=== PATIENT | female | born 1980 | race Caucasian/White ===

== ENCOUNTER → 2022-05-01 | Outpatient (CLI) | payer OTHER, SELFPAY ==
[2022-05-01 11:06] LABS: Anion Gap 8 (5-15); BUN 14 mg/dL (7-18); BUN/Creat Ratio 18.1 RATIO (10-20); Calcium,Total 9.3 mg/dL (8.5-10.1); Chloride 107 mmol/L (98-107); Cholesterol 169 mg/dL (200); Creatinine, Serum 0.77 mg/dL (0.55-1.02); EST Glomerular Filtration Rate 87 mL/min (>60); Est Glom Filt Rate - Afr Amer 106 mL/min (>60); Glucose 91 mg/dL (74-106); High Density Lipoprotein 62 mg/dL; Potassium 3.8 mmol/L (3.5-5.1); Sodium Level 138 mmol/L (136-145); Triglycerides 100 mg/dL; Very Low Density Lipoprotein 20 mg/dL (5-40)
[2022-05-01 11:29] LABS: Vitamin D,25 Hydroxy 35.2 ng/mL
== END | disposition home or self-care (01) ==
LOC: MFPLAB 09:33
PROVIDERS: PCP Family Medicine; Referring Provider Family Medicine; Visit Provider Family Medicine
DX: Z00.00 Encounter for general adult medical examination without abnormal findings (principal)
CPT/HCPCS: 36415; 80048; 80061; 82306

== ENCOUNTER → 2022-10-24 | Outpatient (CLI) | payer OTHER, SELFPAY ==
[2022-10-24 17:58] LABS: Absolute Lymphocyte Count 1.83 X10^3/uL (0.83-4.51); Absolute Neutrophil Count 4.3 X10^3/uL (2.0-7.7); Basophil# 0.03 X10^3/uL; Basophil% 0.5 % (0-1); Eosinophil# 0.07 X10^3/uL; Eosinophils% 1.1 % (0-5); Hematocrit 32.3 % (37-47); Hemoglobin 8.9 g/dL (12.0-15.0); Lymphocyte # 1.83 X10^3/ul (0.83-4.51); Lymphocyte % 27.5 % (19-41); Mean Corp Hgb Conc 27.6 g/dL (32-36); Mean Corpuscular Hgb 19.5 pg (27.0-32.0); Mean Corpuscular Volume 70.7 fL (81-99); Mean Platelet Vol. 9.7 fl (6.2-12.0); Monocyte# 0.43 X10^3/uL; Monocyte% 6.5 % (0-10); NRBC Flagged by Analyzer 0.3 % (0-5); Neutrophil # 4.27 X10^3/uL (2.7-7.7); Neutrophil % 64.1 % (47-70); Platelet Count 459 K/mm3 (150-450); RBC Distribution Width CV 17.6 % (11.6-14.6); RBC Distribution Width SD 44.4 fl (35.1-43.9); Red Blood Count 4.57 M/mm3 (4.2-5.4); White Blood Count 6.7 K/mm3 (4.4-11.0)
[2022-10-24 18:39] LABS: Anion Gap 7 (5-15); BUN 13 mg/dL (7-18); Calcium,Total 8.7 mg/dL (8.5-10.1); Chloride 105 mmol/L (98-107); Creatinine, Serum 0.72 mg/dL (0.55-1.02); EST Glomerular Filtration Rate 95 mL/min (>60); Est Glom Filt Rate - Afr Amer 115 mL/min (>60); Glucose 94 mg/dL (74-106); Potassium 4.2 mmol/L (3.5-5.1); Sodium Level 140 mmol/L (136-145); Thyroid Stim Hormone (TSH) 1.95 uIU/mL (0.358-3.74)
== END | disposition home or self-care (01) ==
LOC: MFPLAB 16:02
PROVIDERS: PCP Family Medicine; Visit Provider Family Medicine
DX: R00.2 Palpitations (principal)
CPT/HCPCS: 36415; 80048; 84443; 85025

== ENCOUNTER 2022-12-07 08:35 | Day surgery (SDC) | payer OTHER, SELFPAY ==
--- NOTE | 2022-11-13 16:25 | PCM.HP.BLA ---
History and Physical Date of Admission: 12/07/22 HPI: The patient is a 42 year old female presenting for pre-operative visit. She is scheduled for laparoscopic bilateral salpingectomy and hysteroscopy with endometrial ablation, for sterilization and menorrhagia with iron deficiency anemia on 12/07/2022. Procedure discussed along with risks, benefits and complications. Other alternatives discussed for management. Consent form signed? Yes. ? ? PAST MEDICAL HISTORY PAST MEDICAL HISTORY Diagnosis Date ? Abnormal glandular Papanicolaou smear of cervix 2002 ? Abn. Pap smear (cervix) ? ? PAST SURGICAL HISTORY PAST SURGICAL HISTORY Procedure Laterality Date ? COLPOSCOPY CERVIX UPPER/ADJACENT VAGINA ? ? ? Colposcopy ? EXTRACTION, ERUPTED TOOTH OR EXPOSED ROOT (ELEVATION AND/OR FORCEPS REMOVAL) ? ? ? wisdom teeth ? ? ? CURRENT MEDICATIONS Current Outpatient Medications Medication Sig Dispense Refill ? Multivitamins-Iron tab Take by mouth. ? ? ? ferrous sulfate (IRON ORAL) Take by mouth. ? ? ? tranexamic acid (LYSTEDA) 650 mg tablet Take 2 tablets by mouth three times daily as needed (heavy menstrual bleeding) for up to 5 days. 30 tablet 2 ? No current facility-administered medications for this visit. ? ? ALLERGIES: Patient has no known allergies. ? PERSONAL HISTORY: SOCIAL HISTORY Social History ? Tobacco Use ? Smoking status: Never ? Smokeless tobacco: Never Vaping Use ? Vaping Use: Never used Substance Use Topics ? Alcohol use: No ? Drug use: No ? FAMILY HISTORY: FAMILY HISTORY FAMILY HISTORY Problem Relation Age of Onset ? Cancer Paternal Grandfather ? ? Coronary Artery Disease Maternal Grandfather ? ? Heart Maternal Grandmother ? ? ? REVIEW OF SYMPTOMS: GENERAL: denies fevers or chills ENDOCRINOLOGY: has not been on steroids Cardiology : denies palpitations or chest pain Respiratory: denies SOB or cough Hematology: denies history of prolonged bleeding or easy bruising or VTE Allergy: Denies history of personal or family history of allergy to anesthesia ? PHYSICAL EXAMINATION: ? VITALS: Weight 170 lb (77.1 kg), last menstrual period 11/11/2022. ? GENERAL: The patient is well nourished, well hydrated in no acute distress. , The patient is oriented to time, place, and person. NECK: Supple. No lynphadenopathy, normal thyroid, no thyromegaly. LUNGS: Clear to auscultation bilaterally. no wheezes, rhonchi or rales HEART: Regular rate and rhythm, Normal heart sounds, and No murmurs or gallops ? IMPRESSION: menorrhagia, sterilization request ? PLAN: The risks/benefits/alternatives and personal involved for the planned laparoscopic bilateral salpingectomy and hysteroscopy with endometrial ablation were reviewed with the patient. Her questions were answered to her satisfaction and she desires to proceed. Consent was signed. I reviewed with her postop instructions and expectations. ? ? I have reviewed and updated past medical and surgical history, medications and allergies Assessment & Plan Assessment/Plan (1) Menorrhagia: (2) Intramural uterine fibroid: (3) Fe deficiency anemia: (4) Sterilization:
[2022-12-07 09:10] LABS: Internal QC Validated? YES +Cl - CLEAR BKGD
[2022-12-07 09:11] LABS: Pregnancy, Urine Negative Negative
[2022-12-07 09:23] VITALS: BP 104/72; PULSE 76; RESP 16; TEMP 36.7; O2SAT 97; BMI 26.4
[2022-12-07] MEDS: Acetaminophen 500 MG Tablet 1000 MG PO (09:26)
[2022-12-07] MEDS: Celecoxib 200 MG Capsule 400 MG PO (09:26)
[2022-12-07] MEDS: Lactated Ringers 1,000 ML 15 ML IV (09:27)
[2022-12-07 09:28] LABS: Hematocrit 43.9 % (37-47); Hemoglobin 13.5 g/dL (12.0-15.0); Mean Corp Hgb Conc 30.8 g/dL (32-36); Mean Corpuscular Hgb 23.9 pg (27.0-32.0); Mean Corpuscular Volume 77.6 fL (81-99); Mean Platelet Vol. 9.6 fl (6.2-12.0); POSITIVE MORPHOLOGY YES; Platelet Count 383 K/mm3 (150-450); RBC Distribution Width CV 23.9 % (11.6-14.6); Red Blood Count 5.66 M/mm3 (4.2-5.4); White Blood Count 5.6 K/mm3 (4.4-11.0)
[2022-12-07 09:31] LABS: Scan Indicated on CBC? Y/N YES- FLAGS NOTED
[2022-12-07 09:36] LABS: Prothrombin Time (Protime)PT. 13.2 SECONDS (11.7-14.9)
--- NOTE | 2022-12-07 09:36 | PCM.DC ---
Discharge Instructions Diet Discharge Diet: Light diet - advance as tolerated Activity Discharge Activity: May Shower and May Take a Tub Bath (in 1 week) Return to work on:: 12/10/22 May shower in (days): 1 May resume sexual activity in: 1 week Lifting Restrictions: 15 lbs x 1 week Dressing / Incision Call your doctor if your incision/area has: Sudden Increased Bleeding and Foul Smelling Discharge Call your doctor if you observe: Fever of 101 or Higher and Using more than 1 pad per hour (for 2 hrs in a row) Cleanse incision/area with: Soap & Water (your incision has skin glue, it can get wet. Leave it on for at least 10 days or until it falls off) Follow Up Care Please Follow Up With: Tosha Melchor MD When: Return needed or if questions or concerns call [phone] or send a [employer] message to make an appointment or with any concerns. You do not need a postop appointment if you have no concerns. Test Results: Test results from this visit will be discussed in further detail at your follow-up appointment, if applicable. Discharge Plan Admission Primary Reason for Your Visit: Endometrial ablation and tubal sterilization Attending Provider: Tosha Melchor Primary Care Provider: John Caraballo Discharge Orders/Prescriptions Prescriptions: New ibuprofen [ibuprofen] 600 mg tablet 600 mg PO Q6H PRN (Reason: Pain) 20 Days Qty: 30 1RF Continued multivitamin [Daily Multi-Vitamin] Tablet 1 tab PO DAILY Referrals / Follow Up: John Caraballo MD [Primary Care Provider] - Disposition Disposition (needs filled in before D/C Order can be placed): Home, Self Care
[2022-12-07 09:37] LABS: Partial Thromboplast Time 30.8 Seconds (24.1-36.2)
--- NOTE | 2022-12-07 09:42 | PCM.OPRPT ---
Problems Associated Problem List Diagnoses (1) Menorrhagia: (2) Fe deficiency anemia: (3) Sterilization: Report of Operation Date of Procedure: 12/07/22 Pre-Operative Diagnosis: menorrhagia, fe def. anemia from chronic blood loss, sterilization request Post-Operative Diagnosis: same Surgery/Procedure Performed:: laparoscopic bilateral salpingectomy, hysteroscopy with Palak endometrial ablation Description of Surgical Findings:: Normal cervix and vagina. Normal uterus tubes and ovaries. Endometrial cavity with lush endometrium. No focal abnormalities noted. Surgeon: Tosha Melchor certified medical technician: Desiree Whalen [id number] Type of Anesthesia: General Anesthesiologist: Shala Logan Special Medications: none Specimen's removed: none Drains: none Estimated Blood Loss (mL): 10 Fluids Replaced: 1000 Description of Procedure: The patient was taken to the operating room where she was prepped and draped in the dorsolithotomy position. A weighted speculum was placed in the vagina and the anterior lip of the cervix was grasped with a tenaculum. The Conn cannula uterine manipulator was placed and the remainder of the instruments were removed from the vagina. Attention was turned to the abdomen. All port sites were infiltrated with 0.5% Marcaine before skin incisions were made. A 5 mm intraumbilical incision was made. The anterior abdominal wall was tented up with 2 towel clamps while a 5 mm blade less trocar and sleeve were directly inserted. Intraperitoneal placement was confirmed with the laparoscope. The pneumoperitoneum was created and the underlying abdominal contents were intact. The patient was placed in Trendelenburg. Right and left lower quadrant ports were placed under direct visualization lateral to the inferior epigastric vessels. The bowel was swept away and the above findings were noted. The Enseal device was used to clamp seal and transect the antimesenteric portions of the right tube to the cornual insertion of the uterus. The tube was amputated from the uterus and the pedicles were all confirmed to be hemostatic. The same procedure was performed on the contralateral side. The specimens were brought out through a 5 mm port. The pedicles were again examined and found to be hemostatic. The lateral ports were removed under direct visualization and no active bleeding was noted. The pneumoperitoneum was released. The skin incisions were closed with Monocryl suture in a subcuticular fashion and skin glue by the teachers assistant with me observing. The Conn cannula was removed and intact. The uterus sounded to 8 cm. The uterus was easily dilated. The cervical length was 3 cm. The Palak device was sent to 5 cm. The hysteroscope was placed in the endometrial cavity which had lush endometrium. No focal abnormalities. Both tubal ostia were identified. The Palak was then seated into the uterus in the usual fashion. The cervical seal balloon was inflated. Seal was noted. The Palak endometrial ablation device went through with safety and ablation device without interruption. The instrument was removed. The remainder the vaginal instruments were removed. . The procedure was performed by me with assistance other than as dictated above. All sponge and needle counts were correct and the patient was taken to the recovery room in stable condition. Grafts/Implants Used: none Procedure Start Time: 10:05 Procedure Stop Time: 10:33 Complications none Admit VTE Documentation VTE Present on Admission: No VTE Mechan Device Prophylaxis: SCD's VTE Pharm Prophylaxis ordered?: No Reason prophylaxis not ordered:: Procedure Not Indicated
--- NOTE | 2022-12-07 10:10 | FALS_PTH ---
PATIENT: GUILLERMO MEJIA LOC: [facility] [place] U#:[id number] AGE/SX: 42/F ROOM: RE12/07/[address]: Dr. Tosha Melchor MD : [id number] BED: DIS: 12/07/2022 SPEC #: [id number] RECD: 12/07/22 10:57 STATUS: MERLIN REHemal #: [id number] GIOVANNA: 12/07/22 10:[address]: Tosha Melchor DEPT: SURGICAL PATHOLOGY RECD BY: Mary Mora ENTERED: 12/07/22 11:45 SP TYPE: FALL TUBES OTHR DR: Dr. John Caraballo MD Tissues: Fallopian tube Procedures: Surgery Specimen Level II HEADER OPERATION: Laparoscopic bilateral salpingectomy PRE-OP DIAGNOSIS: Sterilization TISSUE SUBMITTED: Bilateral fallopian tubes MICROSCOPIC DIAGNOSIS Right and left fallopian tubes, bilateral salpingectomies: Complete cross-sections of fallopian tubes with no pathologic change. AM:william 12/10/2022 MICROSCOPIC DESCRIPTION Slides are reviewed. GROSS DESCRIPTION Received in fixative is one container labeled with the patient's name and designated bilateral fallopian tubes. The specimen consists of bilateral fallopian tubes including fimbrial ends each measuring 6.5 cm in length and 0.6 cm in diameter. The fallopian tubes are not identified as right or left. Sections reveal unremarkable cut surfaces. Packing Machine Inspector sections are submitted in two cassettes with each cassette containing one fallopian tube. / SJ:william 12/07/2022 TC:4 CPT: 24636 x2
[2022-12-07 10:12] LABS: Differential Comment SCANNED
[2022-12-07] MEDS: Lactated Ringers 1,000 ML 75 ML IV (10:30)
[2022-12-07 10:45] VITALS: BP 104/72; BP 129/86; PULSE 96; RESP 16; TEMP 36.2; O2SAT 99
[2022-12-07 11:00] VITALS: BP 104/72; BP 123/84; PULSE 71; RESP 16; O2SAT 100
[2022-12-07 11:15] VITALS: BP 104/72; BP 126/81; PULSE 59; RESP 16; O2SAT 100
[2022-12-07 11:33] VITALS: BP 104/72; BP 124/85; PULSE 59; RESP 16; TEMP 36.7; O2SAT 100
[2022-12-07 12:20] VITALS: BP 104/72
== END 2022-12-07 12:25 | disposition home or self-care (01) ==
LOC: SDC 08:41 → AC 08:43
PROVIDERS: Anesthesiology; PCP Family Medicine; Referring Provider Obstetrics & Gynecology; Visit Provider Obstetrics & Gynecology
PROC: (CPT 58661; principal; 2022-12-07 09:55)
PROC: 0U5B8ZZ Destruction of Endometrium, Via Natural or Artificial Opening Endoscopic (ICD-10-PCS; CPT 58563; 2022-12-07 09:55)
DX: N92.0 Excessive and frequent menstruation with regular cycle (principal); D25.1 Intramural leiomyoma of uterus; Z30.2 Encounter for sterilization; D50.9 Iron deficiency anemia, unspecified; Z86.16 Personal history of COVID-19
CPT/HCPCS: 58563; 58661; 00952; 81025; 85027; 85610; 85730; 86850; 86900; 86901; 88302; J7120; C1760; J2405

== ENCOUNTER → 2023-10-10 | Outpatient (CLI) | payer OTHER, SELFPAY ==
--- OUTSIDE RECORDS SUMMARY | 2023-10-10 09:33 | XMS RPT_ITS | CCD ---
Author Name Unknown Address [address] [place] [address] Organization [facility] Care Team Providers Care Commercial Sales Representative Name Role Phone Nicolás Cruz MD Primary Care Provider GIANCARLO AMOS Referring Unavailable NICOLÁS CRUZ Primary Care GIANCARLO Toussaint Attending Unavailable NICOLÁS CRUZ Primary Care GIANCARLO Toussaint Referring Unavailable NICOLÁS CRUZ Primary Care GIANCARLO Toussaint Attending Unavailable NICOLÁS CRUZ Primary Care Unavailab herron Medications Completed/Discontinued Medications Medication Drug Class(es) Dates Sig (Normalized) Sig (Original) ferrous sulfate (5 sources) ferrous sulfate (IRON ORAL) Take by mouth. 0 Active Problems Active Problems Problem Classification Problem Date Documented Da te Episodic/Chronic Contraceptive and procreative management (2 sources) Patient encounter status; Translations: [Encounter for other general counseling and advice on contraception] Episodic Deficiency and other anemia (1 source) Iron deficiency anemia due to blood loss; Translations: [Iron deficiency anemia secondary to blood loss (chronic)] Chronic Deficiency and other anemia (1 source) Iron deficiency anemia secondary to blood loss (chronic); Translations: [Iron deficiency anemia due to chronic blood loss] Onset: 11-12-2022 Chronic Deficiency and other anemia (2 sources) Iron deficiency anemia; Translations: [Iron deficiency anemia, unspecified] Episodic Hemorrhage during ; abruptio placenta; placenta previa (1 source) Threatened miscarriage; Translations: [Threatened ] Episodic Menstrual disorders (1 source) Menorrhagia; Translations: [Excessive and frequent menstruation with regular cycle] Chronic Other female genital disorders (2 sources) Abnormal uterine bleeding; Translations: [Abnormal uterine and vaginal bleeding, unspecified] Chronic Other female genital disorders (1 source) Abnormal uterine and vaginal bleeding, unspecified; Translations: [Abnormal uterine bleeding (AUB)] Onset: 11-08-2022 Chronic Past or Other Problems Problem Classification Problem Date Documented Da te Episodic/Chronic Deficiency and other anemia (1 source) Iron deficiency anemia, unspecified; Translations: [Iron deficiency anemia, unspecified iron deficiency anemia type] Onset: 11-08-2022 Episodic NEGATED: Highlighted row has been ruled out!Unclassified (1 source) No known active problems 11-12-2022 Results Test Name Value Interpretation Reference Range Facil ity Vital Signs Date Time Vital Sign Value Performing Clinician Faci lity 11-12-2022 14:05-0500 Body weight 77.11 kg Giancarlo Amos MD Work Phone: [facility] 10-30-2022 15:33-0500 Body weight 77.11 kg Giancarlo Amos MD Work Phone: [facility] 10-30-2022 15:33-0500 Diastolic blood pressure 68 mm[Hg] Giancarlo Amos MD Work Phone: [facility] 10-30-2022 15:33-0500 Systolic blood pressure 116 mm[Hg] Giancarlo Amos MD Work Phone: [facility] Encounters Encounter Date Encounter Type Care Provider Facility Start: 12-11-2022 Chart abstracting Giancarlo garcia MD Work Phone: OB/Gynecology Procedures Date Procedure Procedure Detail Performing Clinician Start: 11-08-2022 Us transvaginal Giancarlo Amos MD Work Phone: Start: 10-03-2021 Mammography Giancarlo garcia MD Work Phone: Start: 02-01-2021 Gonadotropin chorion ic micheline Causey APRN.CNM Work Phone: Plan of Treatment Date Care Activity Detail Author Start: 10-02-2026 HPV TESTING HPV TESTING [facility] Start: 10-02-2026 PAP TESTING PAP TESTING [facility] Start: 06-07-2023 Covid-19 Vaccine () Covid-19 Vaccine () [facility] Start: 06-07-2023 Influenza vaccination [facility] Start: 10-07-2022 DEPRESSION ASSESSMENT DEPRESSION ASSESSMENT [facility] Start: 10-03-2022 Mammography [facility] Start: 06-07-2022 Influenza vaccination INFLUENZA (#1) [facility] Start: 11-22-2021 COVID-19 VACCINE (3 - Booster for Pfizer series) COVID-19 VACCINE (3 - Booster for Pfizer series) [facility] Start: 2000 Urine microalbumin profile [facility] Start: 1999 HEPATITIS C SCREENING HEPATITIS C SCREENING [facility] Start: 1999 HIV SCREENING HIV SCREENING [facility] Start: 1981 HEPATITIS B (1 of 3 - 3-dose series) HEPATITIS B (1 of 3 - 3-dose series) [facility] Start: 1981 Hepatitis B Vaccine (1 of 3 - 3-dose series) Hepatitis B Vaccine (1 of 3 - 3-dose series) [facility] Endometrial bx w/wo endocervix bx w/o dilat spx ENDOMETRIAL BIOPSY Procedures Routine Abnormal uterine bleeding (AUB) Iron deficiency anemia, unspecified iron deficiency anemia type Ordered: 10/30/2022 [facility] Work Phone: Payers Date Payer Category Payer Unknown [id number] 2007 Unknown [id number] Social History Date Type Detail Facility [facility]: [facility] Start: 06-18-2011 Tobacco use and exposure Smoke less tobacco non-user [facility] Start: 10-30-2022 End: 12-11-2022 Alcohol intake Current non-drinker of alcohol (finding) [facility] Start: 1981 Sex Assigned At Not on file [facility] Start: 01-02-2021 End: 11-07-2021 Exposure to SARS-CoV-2 (event) Not sure [facility] Start: 10-30-2022 History of Social function [facility] Start: 10-30-2022 Tobacco use panel [facility] National Score (1-10 0), lower number is lower risk 50 [facility] Clinical Notes 12-16-2008 to 12-11-2022 Giancarlo Amos MD - 12/11/2022 11:25 AM Addy Wolfe RN - 12/11/2022 10:19 AM Rico Amos MD - 11/12/2022 3:28 PM Rico Amos MD - 11/12/2022 2:05 PM EST Note Date & Type Note Facility 12-11-2022 Note HNO ID: [id number] Author: Giancarlo Amos MD Service: ? Author Type: Physician Type: Progress Notes Filed: 12/11/2022 11:28 AM Note Text: Patient underwent laparoscopic bilateral salpingectomy and hysteroscopy with Palak endometrial ablation at [facility] on 12/07/2022 without difficulty for heavy menses and sterilization. Giancarlo Amos MD [facility] 12-11-2022 Note HNO ID: [id number] Author: Joanna Wolfe RN Service: ? Author Type: ? Type: Progress Notes Filed: 12/11/2022 11:25 AM Note Text: Pathology results from 12/07/22 surgery scanned into evidanza and linked below. Please review. Scan on 12/10/2022 5:15 PM by External Provider: Pathology Joanna Wolfe RN [facility] 12-11-2022 History of Present illness Narrative Patient underwent laparoscopic bilateral salpingectomy and hysteroscopy with Palak endometrial ablation at [facility] on 12/07/2022 without difficulty for heavy menses and sterilization. Giancarlo Amos MD documented in this encounter [facility] 12-11-2022 History of Present illness Narrative Pathology results from 12/07/22 surgery scanned into evidanza and linked below. Please review. Scan on 12/10/2022 5:15 PM by External Provider: Pathology Joanna Wolfe RN documented in this encounter [facility] 11-12-2022 Note HNO ID: [id number] Author: Giancarlo Amos MD Service: ? Author Type: Physician Type: Progress Notes Filed: 11/13/2022 4:24 PM Note Text: Guillermo Mercedes is a 42 year old female who presents for problem visit for f/u heavy menses . HPI: 42-year-old female for follow-up ultrasound and endometrial biopsy. Was referred for heavy menses and iron deficiency anemia. Her annual biopsy returned benign secretory endometrium. Her ultrasound returned normal. She has no new complaints today. She has been taking an iron supplement. OB History T2 L3 SAB2 IAB0 Ectopic0 Multiple0 Live Births2 Test Lead Application Testing History LMP: 11/11/2022 (Exact Date), Having periods Age at Menarche: Age at First : Age at Menopause: Test Lead Application Testing History Comments: Sexual Activity: Yes; Male Contraception: PAST MEDICAL HISTORY Diagnosis Date Abnormal glandular Papanicolaou smear of cervix 2002 Abn. Pap smear (cervix) PAST SURGICAL HISTORY Procedure Laterality Date COLPOSCOPY CERVIX UPPER/ADJACENT VAGINA Colposcopy EXTRACTION, ERUPTED TOOTH OR EXPOSED ROOT (ELEVATION AND/OR FORCEPS REMOVAL) wisdom teeth FAMILY HISTORY Problem Relation Age of Onset Cancer Paternal Grandfather Coronary Artery Disease Maternal Grandfather Heart Maternal Grandmother Social History Tobacco Use Smoking status: Never Smokeless tobacco: Never Vaping Use Vaping Use: Never used Substance Use Topics Alcohol use: No Drug use: No Current Outpatient Medications Medication Sig Multivitamins-Iron tab Take by mouth. ferrous sulfate (IRON ORAL) Take by mouth. tranexamic acid (LYSTEDA) 650 mg tablet Take 2 tablets by mouth three times daily as needed (heavy menstrual bleeding) for up to 5 days. No current facility-administered medications for this visit. Allergies As of Date: 11/12/2022 (No Known Allergies) Fully Assessed 11/12/2022 Allergies and current medication updated:Yes EXAM: Wt 170 lb (77.1kg) LMP 11/11/2022 GENERAL: pleasant, female in no apparent distress ASSESSMENT AND PLAN: Menorrhagia and iron deficiency anemia. Reviewed pelvic ultrasound and EMB results with patient. Repeat CBC today. Continue iron therapy. Recommend exam and stool for blood. Discussed with her options of Mirena intrauterine system, hormonal therapy, or endometrial ablation. Patient does not use anything for contraception. Discussed with her an ablation is not considered contraception and would recommend something for contraception because could be life-threatening to her and/or a fetus. Response and alternatives to laparoscopic bilateral salpingectomy with hysteroscopy with endometrial elation were discussed with patient, questions were answered to her satisfaction she desires to proceed She understands this is permanent, irreversible and she will be permanently sterilized. Medical Decision Making: Problems: Moderate: 2+ stable chronic illnesses Data: Unique test result(s) reviewed: 2 Unique test(s) ordered: 1 Risk: Moderate: Decision on minor surgery w/ risk factors Medical Decision Making Level: 4 - Moderate Giancarlo Amos MD [facility] 11-12-2022 History and physical note Pre-Op History and Physical HPI: The patient is a 42 year old female presenting for pre-operative visit. She is scheduled for laparoscopic bilateral salpingectomy and hysteroscopy with endometrial ablation, for sterilization and menorrhagia with iron deficiency anemia on 12/07/2022. Procedure discussed along with risks, benefits and complications. Other alternatives discussed for management. Consent form signed? Yes. PAST MEDICAL HISTORY Diagnosis Date Abnormal glandular Papanicolaou smear of cervix 2002 Abn. Pap smear (cervix) PAST SURGICAL HISTORY Procedure Laterality Date COLPOSCOPY CERVIX UPPER/ADJACENT VAGINA Colposcopy EXTRACTION, ERUPTED TOOTH OR EXPOSED ROOT (ELEVATION AND/OR FORCEPS REMOVAL) wisdom teeth Current Outpatient Medications Medication Sig Dispense Refill Multivitamins-Iron tab Take by mouth. ferrous sulfate (IRON ORAL) Take by mouth. tranexamic acid (LYSTEDA) 650 mg tablet Take 2 tablets by mouth three times daily as needed (heavy menstrual bleeding) for up to 5 days. 30 tablet 2 No current facility-administered medications for this visit. ALLERGIES: Patient has no known allergies. PERSONAL HISTORY: Social History Tobacco Use Smoking status: Never Smokeless tobacco: Never Vaping Use Vaping Use: Never used Substance Use Topics Alcohol use: No Drug use: No FAMILY HISTORY: FAMILY HISTORY Problem Relation Age of Onset Cancer Paternal Grandfather Coronary Artery Disease Maternal Grandfather Heart Maternal Grandmother REVIEW OF SYMPTOMS: GENERAL: denies fevers or chills ENDOCRINOLOGY: has not been on steroids Cardiology : denies palpitations or chest pain Respiratory: denies SOB or cough Hematology: denies history of prolonged bleeding or easy bruising or VTE Allergy: Denies history of personal or family history of allergy to anesthesia PHYSICAL EXAMINATION: VITALS: Weight 170 lb (77.1 kg), last menstrual period 11/11/2022. GENERAL: The patient is well nourished, well hydrated in no acute distress. , The patient is oriented to time, place, and person. NECK: Supple. No lynphadenopathy, normal thyroid, no thyromegaly. LUNGS: Clear to auscultation bilaterally. no wheezes, rhonchi or rales HEART: Regular rate and rhythm, Normal heart sounds, and No murmurs or gallops IMPRESSION: menorrhagia, sterilization request PLAN: The risks/benefits/alternatives and personal involved for the planned laparoscopic bilateral salpingectomy and hysteroscopy with endometrial ablation were reviewed with the patient. Her questions were answered to her satisfaction and she desires to proceed. Consent was signed. I reviewed with her postop instructions and expectations. I have reviewed and updated past medical and surgical history, medications and allergies Giancarlo Amos M.D. documented in this encounter [facility] 11-12-2022 History of Present illness Narrative Guillermo Mercedes is a 42 year old female who presents for problem visit for f/u heavy menses . HPI: 42-year-old female for follow-up ultrasound and endometrial biopsy. Was referred for heavy menses and iron deficiency anemia. Her annual biopsy returned benign secretory endometrium. Her ultrasound returned normal. She has no new complaints today. She has been taking an iron supplement. OB History T2 L3 SAB2 IAB0 Ectopic0 Multiple0 Live Births2 Test Lead Application Testing History LMP: 11/11/2022 (Exact Date), Having periods Age at Menarche: Age at First : Age at Menopause: Test Lead Application Testing History Comments: Sexual Activity: Yes; Male Contraception: PAST MEDICAL HISTORY Diagnosis Date Abnormal glandular Papanicolaou smear of cervix 2002 Abn. Pap smear (cervix) PAST SURGICAL HISTORY Procedure Laterality Date COLPOSCOPY CERVIX UPPER/ADJACENT VAGINA Colposcopy EXTRACTION, ERUPTED TOOTH OR EXPOSED ROOT (ELEVATION AND/OR FORCEPS REMOVAL) wisdom teeth FAMILY HISTORY Problem Relation Age of Onset Cancer Paternal Grandfather Coronary Artery Disease Maternal Grandfather Heart Maternal Grandmother Social History Tobacco Use Smoking status: Never Smokeless tobacco: Never Vaping Use Vaping Use: Never used Substance Use Topics Alcohol use: No Drug use: No Current Outpatient Medications Medication Sig Multivitamins-Iron tab Take by mouth. ferrous sulfate (IRON ORAL) Take by mouth. tranexamic acid (LYSTEDA) 650 mg tablet Take 2 tablets by mouth three times daily as needed (heavy menstrual bleeding) for up to 5 days. No current facility-administered medications for this visit. Allergies As of Date: 11/12/2022 (No Known Allergies) Fully Assessed 11/12/2022 Allergies and current medication updated:Yes EXAM: Wt 170 lb (77.1kg) LMP 11/11/2022 GENERAL: pleasant, female in no apparent distress ASSESSMENT AND PLAN: Menorrhagia and iron deficiency anemia. Reviewed pelvic ultrasound and EMB results with patient. Repeat CBC today. Continue iron therapy. Recommend exam and stool for blood. Discussed with her options of Mirena intrauterine system, hormonal therapy, or endometrial ablation. Patient does not use anything for contraception. Discussed with her an ablation is not considered contraception and would recommend something for contraception because could be life-threatening to her and/or a fetus. Response and alternatives to laparoscopic bilateral salpingectomy with hysteroscopy with endometrial elation were discussed with patient, questions were answered to her satisfaction she desires to proceed She understands this is permanent, irreversible and she will be permanently sterilized. Medical Decision Making: Problems: Moderate: 2+ stable chronic illnesses Data: Unique test result(s) reviewed: 2 Unique test(s) ordered: 1 Risk: Moderate: Decision on minor surgery w/ risk factors Medical Decision Making Level: 4 - Moderate Giancarlo Amos MD documented in this encounter [facility] 11-08-2022 Note HNO ID: [id number] Author: Sarah Arriola RDMS Service: ? Author Type: Hand Deicer Element Winder Type: Progress Notes Filed: 11/08/2022 3:12 PM Note Text: Radiology Service Progress Note PATIENT NAME: Guillermo Mercedes DATE OF SERVICE: November 08, 2022 TIME: 3:12 PM PATIENT IDENTITY VERIFICATION COMPLETED USING TWO (2) IDENTIFIERS: Name and Date of confirmed by patient verbally. FALL SCREENING: Has the patient had 2 falls in the last year or 1 fall with injury or currently using an Ambulatory Assistive Device (Walker, Cane, Wheelchair, Crutches, etc.)? No PATIENT GENDER DATA: Female. status: : No status: NO. PATIENT RELEVANT IMPLANT DATA REVIEWED: Not Applicable RADIOLOGY DEPARTMENT: Ultrasound PERIPHERAL IV DATA: Not applicable SIGNED BY: Sarah Arriola RDMS RVT November 08, 2022 3:12 PM [facility] 11-08-2022 History of Present illness Narrative Radiology Service Progress Note PATIENT NAME: Guillermo Mercedes DATE OF SERVICE: November 08, 2022 TIME: 3:12 PM PATIENT IDENTITY VERIFICATION COMPLETED USING TWO (2) IDENTIFIERS: Name and Date of confirmed by patient verbally. FALL SCREENING: Has the patient had 2 falls in the last year or 1 fall with injury or currently using an Ambulatory Assistive Device (Walker, Cane, Wheelchair, Crutches, etc.)? No PATIENT GENDER DATA: Female. status: : No status: NO. PATIENT RELEVANT IMPLANT DATA REVIEWED: Not Applicable RADIOLOGY DEPARTMENT: Ultrasound PERIPHERAL IV DATA: Not applicable SIGNED BY: Sarah Arriola RDMS RVT November 08, 2022 3:12 PM documented in this encounter [facility] 10-30-2022 Note HNO ID: [id number] Author: Giancarlo Amos MD Service: ? Author Type: Physician Type: Progress Notes Filed: 10/30/2022 5:04 PM Note Text: Guillermo Mercedes is a 42 year old female who presents for problem visit for AUB. Noted over past week or so she had high heart rate and went to PCP and worked up and had signif. anemia. HPI: Menses about 5 days long. One day heavy. Uses menstrual cup and empties it frequently. Not a lot of crmaping. No breakthrough bleeding or postcoital bleeding. No h/o fibroids or polyps. No h/o bleeding disorders. OB History T2 L3 SAB2 IAB0 Ectopic0 Multiple0 Live Births2 Test Lead Application Testing History LMP: 09/24/2021, Having periods Age at Menarche: Age at First : Age at Menopause: Test Lead Application Testing History Comments: Sexual Activity: Yes; Male Contraception: PAST MEDICAL HISTORY Diagnosis Date Abnormal glandular Papanicolaou smear of cervix 2002 Abn. Pap smear (cervix) PAST SURGICAL HISTORY Procedure Laterality Date COLPOSCOPY CERVIX UPPER/ADJACENT VAGINA Colposcopy EXTRACTION, ERUPTED TOOTH OR EXPOSED ROOT (ELEVATION AND/OR FORCEPS REMOVAL) wisdom teeth FAMILY HISTORY Problem Relation Age of Onset Cancer Paternal Grandfather Coronary Artery Disease Maternal Grandfather Heart Maternal Grandmother Social History Tobacco Use Smoking status: Never Smokeless tobacco: Never Vaping Use Vaping Use: Never used Substance Use Topics Alcohol use: No Drug use: No No current outpatient medications on file. No current facility-administered medications for this visit. Allergies As of Date: 10/30/2022 (No Known Allergies) Fully Assessed 10/02/2021 REVIEW OF SYSTEMS Abdomen: No bloating, early satiety, indigestion, or increased flatulence. No abdominal pain, nausea, vomiting, diarrhea, or constipation. Denies melena or hematochezia Allergies and current medication updated:Yes EXAM: LMP 09/24/2021 GENERAL: pleasant, female in no apparent distress HEENT: Normocephalic, atraumatic, mucus membranes moist, and no lesions PELVIC: external genitalia normal, normal Bartholin's glands, urethra, Liscomb's glands, no vulvar lesions, no cervical lesions, good vaginal support, physiologic discharge present, normal appearing perineal body and perianal region BIMANUAL: uterus normal size, shape and consistency, no adnexal masses, and non-tender ASSESSMENT AND PLAN: menorrhagia, fe def anemia, likely chronic blood loss D/w her recommend pelvic US, EMB and eval stool for blood d/w her fe supplement and MVI lysteda prn until work up done does not desire future D/w her options- not interested in combined hormonal contraceptives or hormonal options, has had signif side effects in the past. Not interested in IUD. Most interested in endometrial ablation w/ tubal sterilization Risks, benefits and alternatives to sterilization have been discussed with the patient. She declines reversible options including LARC. She understands sterilization is permanent, irreversible, risks of failure, regret and ectopic. In addition she understands there are surgical risks as well. Her questions were answered to her satisfaction and she will consider Reviewed labs from PCP Medical Decision Making: Problems: Low: 2+ self-limited or minor problems Moderate: New problem with uncertain prognosis Data: Unique source(s) for external note(s) reviewed: 1 Unique test result(s) reviewed: 3+ Unique test(s) ordered: 3+ Risk: Moderate: Drug management Medical Decision Making Level: 4 - Moderate Giancarlo Amos MD Marci is a 42 year old who presents today for an endometrial biopsy for abnormal uterine bleeding. test: negative UNIVERSAL PROTOCOL / SAFETY CHECKLIST Procedure to be Performed: EMB Sign In: A Moment of CARE was completed. Personnel directly involved with the procedure wore the appropriate PPE (Personal Protective Equipment). Patient/Surrogate Stated/Verified: PATIENT VERIFIED(optional for EMERGENT procedures): Patient name, Date of , Relevant allergies, and The intended procedure Time Out Communication: Intended patient and procedure match the source documents. Consent documented and matches the intended procedure. No implant(s) inserted. Sign Out: SIGN OUT (optional for EMERGENT procedures): All specimen containers correctly labeled. All instruments, equipment, possible retained foreign bodies accounted for. Post-procedure follow-up management communicated and Plan of Care Visit completed when applicable. Giancarlo Amos MD PROCEDURE: EXTERNAL GENITALIA: Normal in appearance without lesions VAGINA: Normal in appearance without lesions BIOPSY: Speculum placed into the vagina with excellent visualization of the cervix. Cervix cleaned with betadine. Uterus sounded to 8.5 cm. Pipelle inserted into the uterus without difficulty and endometrial biopsy obtained- 2 vigorou (more content not included)... [facility] 10-30-2022 History of Present illness Narrative Guillermo Mercedes is a 42 year old female who presents for problem visit for AUB. Noted over past week or so she had high heart rate and went to PCP and worked up and had signif. anemia. HPI: Menses about 5 days long. One day heavy. Uses menstrual cup and empties it frequently. Not a lot of crmaping. No breakthrough bleeding or postcoital bleeding. No h/o fibroids or polyps. No h/o bleeding disorders. OB History T2 L3 SAB2 IAB0 Ectopic0 Multiple0 Live Births2 Test Lead Application Testing History LMP: 09/24/2021, Having periods Age at Menarche: Age at First : Age at Menopause: Test Lead Application Testing History Comments: Sexual Activity: Yes; Male Contraception: PAST MEDICAL HISTORY Diagnosis Date Abnormal glandular Papanicolaou smear of cervix 2002 Abn. Pap smear (cervix) PAST SURGICAL HISTORY Procedure Laterality Date COLPOSCOPY CERVIX UPPER/ADJACENT VAGINA Colposcopy EXTRACTION, ERUPTED TOOTH OR EXPOSED ROOT (ELEVATION AND/OR FORCEPS REMOVAL) wisdom teeth FAMILY HISTORY Problem Relation Age of Onset Cancer Paternal Grandfather Coronary Artery Disease Maternal Grandfather Heart Maternal Grandmother Social History Tobacco Use Smoking status: Never Smokeless tobacco: Never Vaping Use Vaping Use: Never used Substance Use Topics Alcohol use: No Drug use: No No current outpatient medications on file. No current facility-administered medications for this visit. Allergies As of Date: 10/30/2022 (No Known Allergies) Fully Assessed 10/02/2021 REVIEW OF SYSTEMS Abdomen: No bloating, early satiety, indigestion, or increased flatulence. No abdominal pain, nausea, vomiting, diarrhea, or constipation. Denies melena or hematochezia Allergies and current medication updated:Yes EXAM: LMP 09/24/2021 GENERAL: pleasant, female in no apparent distress HEENT: Normocephalic, atraumatic, mucus membranes moist, and no lesions PELVIC: external genitalia normal, normal Bartholin's glands, urethra, Liscomb's glands, no vulvar lesions, no cervical lesions, good vaginal support, physiologic discharge present, normal appearing perineal body and perianal region BIMANUAL: uterus normal size, shape and consistency, no adnexal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
[2023-10-10 10:23] LABS: Absolute Lymphocyte Count 1.77 X10^3/uL (0.83-4.51); Absolute Neutrophil Count 4.1 X10^3/uL (2.0-7.7); Basophil# 0.04 X10^3/uL; Basophil% 0.6 % (0-1); Eosinophil# 0.06 X10^3/uL; Hematocrit 45.5 % (37-47); Lymphocyte # 1.77 X10^3/ul (0.83-4.51); Lymphocyte % 28.1 % (19-41); Mean Corpuscular Hgb 29.8 pg (27.0-32.0); Mean Corpuscular Volume 90.5 fL (81-99); Mean Platelet Vol. 9.6 fl (6.2-12.0); Monocyte# 0.34 X10^3/uL; Monocyte% 5.4 % (0-10); NRBC Flagged by Analyzer 0 % (0-5); Neutrophil # 4.08 X10^3/uL (2.7-7.7); Neutrophil % 64.7 % (47-70); Platelet Count 330 K/mm3 (150-450); RBC Distribution Width CV 12.9 % (11.6-14.6); RBC Distribution Width SD 42.5 fl (35.1-43.9); Red Blood Count 5.03 M/mm3 (4.2-5.4); White Blood Count 6.3 K/mm3 (4.4-11.0)
[2023-10-10 11:21] LABS: Anion Gap 7 (5-15); BUN 10 mg/dL (7-18); BUN/Creat Ratio 12.2 RATIO (10-20); Calcium,Total 8.8 mg/dL (8.5-10.1); Chloride 106 mmol/L (98-107); Cholesterol 193 mg/dL (200); Creatinine, Serum 0.82 mg/dL (0.55-1.02); EST Glomerular Filtration Rate 81 mL/min (>60); Est Glom Filt Rate - Afr Amer 98 mL/min (>60); Ferritin 34 ng/mL (8-252); Glucose 98 mg/dL (74-106); High Density Lipoprotein 61 mg/dL; Iron 85 ug/dL (50-170); Iron Binding Capacity,Total 377 ug/dL (250-450); PERCENT IRON SATURATION 22.5 % (15.0-55.0); Potassium 4.1 mmol/L (3.5-5.1); Sodium Level 138 mmol/L (136-145); Triglycerides 115 mg/dL; Very Low Density Lipoprotein 23 mg/dL (5-40)
== END | disposition home or self-care (01) ==
LOC: MTLAB 09:06
PROVIDERS: PCP Family Medicine; Referring Provider Family Medicine; Visit Provider Family Medicine
DX: Z00.00 Encounter for general adult medical examination without abnormal findings (principal); D64.9 Anemia, unspecified
CPT/HCPCS: 36415; 80048; 80061; 82728; 83540; 83550; 85025

== ENCOUNTER → 2024-01-08 | Outpatient (CLI) | payer OTHER, SELFPAY ==
[2024-01-08 10:23] LABS: Absolute Lymphocyte Count 1.77 X10^3/uL (0.83-4.51); Absolute Neutrophil Count 5.7 X10^3/uL (2.0-7.7); Basophil# 0.04 X10^3/uL; Basophil% 0.5 % (0-1); Eosinophil# 0.05 X10^3/uL; Eosinophils% 0.6 % (0-5); Hematocrit 44.8 % (37-47); Hemoglobin 14.9 g/dL (12.0-15.0); Lymphocyte # 1.77 X10^3/ul (0.83-4.51); Lymphocyte % 22.3 % (19-41); Mean Corp Hgb Conc 33.3 g/dL (32-36); Mean Corpuscular Hgb 29.3 pg (27.0-32.0); Mean Corpuscular Volume 88.2 fL (81-99); Mean Platelet Vol. 9.7 fl (6.2-12.0); Monocyte# 0.39 X10^3/uL; Monocyte% 4.9 % (0-10); NRBC Flagged by Analyzer 0 % (0-5); Neutrophil # 5.67 X10^3/uL (2.7-7.7); Neutrophil % 71.3 % (47-70); Platelet Count 354 K/mm3 (150-450); RBC Distribution Width CV 12.5 % (11.6-14.6); RBC Distribution Width SD 40.2 fl (35.1-43.9); Red Blood Count 5.08 M/mm3 (4.2-5.4)
[2024-01-08 11:01] LABS: Anion Gap 7 (5-15); BUN 9 mg/dL (7-18); BUN/Creat Ratio 11.1 RATIO (10-20); CRP < 2.90 mg/L (0.0-3.0); Calcium,Total 9.4 mg/dL (8.5-10.1); Chloride 107 mmol/L (98-107); Creatinine, Serum 0.81 mg/dL (0.55-1.02); EST Glomerular Filtration Rate 82 mL/min (>60); Est Glom Filt Rate - Afr Amer 100 mL/min (>60); Glucose 91 mg/dL (74-106); Sodium Level 141 mmol/L (136-145)
[2024-01-08 12:45] LABS: Erythrocyte Sedimentation Rate 3 mm/hr (0-30)
== END | disposition home or self-care (01) ==
PROVIDERS: PCP Family Medicine; Visit Provider Family Medicine
DX: R20.0 Anesthesia of skin (principal)
CPT/HCPCS: 36415; 80048; 85025; 85652; 86140

== ENCOUNTER → 2024-06-26 | Outpatient (CLI) | payer OTHER, SELFPAY ==
[2024-06-26 12:15] LABS: Absolute Lymphocyte Count 1.65 X10^3/uL (0.83-4.51); Absolute Neutrophil Count 5.1 X10^3/uL (2.0-7.7); Basophil# 0.04 X10^3/uL; Basophil% 0.6 % (0-1); Eosinophil# 0.03 X10^3/uL; Eosinophils% 0.4 % (0-5); Hematocrit 45.8 % (37-47); Hemoglobin 15.3 g/dL (12.0-15.0); Lymphocyte # 1.65 X10^3/ul (0.83-4.51); Lymphocyte % 22.9 % (19-41); Mean Corp Hgb Conc 33.4 g/dL (32-36); Mean Corpuscular Hgb 29.2 pg (27.0-32.0); Mean Corpuscular Volume 87.4 fL (81-99); Mean Platelet Vol. 9.4 fl (6.2-12.0); Monocyte# 0.39 X10^3/uL; Monocyte% 5.4 % (0-10); NRBC Flagged by Analyzer 0 % (0-5); Neutrophil # 5.09 X10^3/uL (2.7-7.7); Neutrophil % 70.4 % (47-70); Platelet Count 360 K/mm3 (150-450); RBC Distribution Width CV 12.4 % (11.6-14.6); Red Blood Count 5.24 M/mm3 (4.2-5.4); White Blood Count 7.2 K/mm3 (4.4-11.0)
[2024-06-26 12:34] LABS: Anion Gap 7 (5-15); BUN 10 mg/dL (7-18); BUN/Creat Ratio 13.1 RATIO (10-20); Calcium,Total 9.5 mg/dL (8.5-10.1); Chloride 106 mmol/L (98-107); Creatinine, Serum 0.76 mg/dL (0.55-1.02); EST Glomerular Filtration Rate 88 mL/min (>60); Est Glom Filt Rate - Afr Amer 106 mL/min (>60); Glucose 100 mg/dL (74-106); Potassium 3.8 mmol/L (3.5-5.1); Sodium Level 137 mmol/L (136-145)
== END | disposition home or self-care (01) ==
LOC: MFPLAB 10:41
PROVIDERS: PCP Family Medicine; Visit Provider Family Medicine
DX: R07.9 Chest pain, unspecified (principal)
CPT/HCPCS: 36415; 80048; 85025

== ENCOUNTER → 2024-07-09 | Outpatient (CLI) | payer OTHER, SELFPAY ==
--- NOTE | 2024-07-09 14:51 | STRESSREP ---
Stress Test Report Date: 07/09/2024 Procedure: Exercise tolerance test/imaging study Indications: Chest pain Consent: Per the patient Procedure: The patient exercised on a Timmy protocol for 12 minutes achieving a peak heart rate of 162 bpm (91% predicted maximal heart rate) with a peak blood pressure 164/60 mmHg and a peak MET capacity of 13.4 METs. The baseline ECG demonstrated normal sinus rhythm. The peak exercise ECG demonstrated sinus tachycardia with no significant ischemic changes. EKG during recovery revealed no significant ischemic changes [There were no cardiac dysrhythmias pretest, during exercise, or recovery]. The functional capacity was considered excellent for age. Patient had mild chest tightness early in exercise that did not increase significantly at peak exertion and resolved in the recovery phase. The examination was discontinued secondary to achieving target heart rate. Impression: 1. Technically adequate (percent predicted maximal heart rate greater than 85%) exercise tolerance test 2. Stress test is negative for exercise-induced EKG changes of ischemia 3. The test test is positive for exercise-induced chest pain as described above. 4. Functional capacity is excellent for age 5. Nuclear images pending Myocardial perfusion imaging study: Technique: The patient was injected with 11.2 mCi of technetium 99m Cardiolite and subsequently rest SPECT Cardiolite nuclear imaging was obtained in the horizontal long, vertical long, and short axis views. The patient exercised on a Timmy protocol. Please see above for details. The patient was injected with 34 mCi of technetium 99m Cardiolite and subsequently stress SPECT Cardiolite nuclear imaging was obtained in the horizontal long, vertical long, and short axis views. A gated Cardiolite study at peak stress was obtained. Interpretation: Rest and stress SPECT Cardiolite nuclear imaging status post realignment, normalization, and attenuation correction, demonstrates no evidence of significant ischemia or infarction. The gated Cardiolite study demonstrates no significant regional wall motion abnormalities. The reported LVEF is greater than 70%. Impression: 1. There is no evidence of significant ischemia or infarction. 2. The gated Cardiolite study reports an LVEF of greater than 70%. This note was generated with Whitetruffleation software. It may contain incorrect words, spelling, and punctuation that were not noted in checking the note before signing.
== END | disposition home or self-care (01) ==
PROVIDERS: PCP Family Medicine; Referring Provider Family Medicine; Visit Provider Family Medicine
DX: R07.9 Chest pain, unspecified (principal)
CPT/HCPCS: 78452; 93017; A9500

== ENCOUNTER → 2025-05-27 | Outpatient (CLI) | payer OTHER, SELFPAY ==
--- NOTE | 2025-05-27 14:59 | RAD_ITS ---
PROCEDURE: CHEST PA AND LATERAL 05/27/2025 REASON FOR EXAM: MOLD EXPOSURE TECHNIQUE: CHEST PA AND LATERAL COMPARISON: None provided. RAD/Chest PA and Lateral IMPRESSION: Lungs appear clear throughout. No pleural effusion or pneumothorax is noted. The cardiomediastinal silhouette is within the normal range. Mild thoracic spine degenerative changes are seen. No acute osseous change is evident. No evidence of acute cardiopulmonary disease Reading Location: [place] [address]
[2025-05-27 18:00] LABS: Hematocrit 41.1 % (37-47); Hemoglobin 14.2 g/dL (12.0-15.0); Immature Granulocytes Count 0.010 X10^3/uL (0.0-0.0); Mean Corp Hgb Conc 34.5 g/dL (32-36); Mean Corpuscular Volume 87.1 fL (81-99); Mean Platelet Vol. 9.6 fl (6.2-12.0); NRBC Flagged by Analyzer 0 % (0-5); Platelet Count 348 K/mm3 (150-450); RBC Distribution Width CV 12.6 % (11.6-14.6); RBC Distribution Width SD 40.3 fl (35.1-43.9); Red Blood Count 4.72 M/mm3 (4.2-5.4); White Blood Count 7.5 K/mm3 (4.4-11.0)
[2025-05-27 18:37] LABS: Anion Gap 13 (5-15); BUN 13 mg/dL (4-19); BUN/Creat Ratio 14.6 RATIO (10-20); Calcium,Total 9.2 mg/dL (7.6-11.0); Carbon Dioxide 24.5 mmol/L (21.0-32.0); Chloride 102 mmol/L (98-108); Glucose 101 mg/dL (70-99); Potassium 3.8 mmol/L (3.3-5.1)
== END | disposition home or self-care (01) ==
PROVIDERS: PCP Family Medicine; Referring Provider Family Medicine; Visit Provider Family Medicine
DX: Z77.120 Contact with and (suspected) exposure to mold (toxic) (principal)
CPT/HCPCS: 36415; 71046; 80048; 85025